=== PATIENT | male | born 1980 | race African-American/Black ===

== ENCOUNTER 2023-07-27 18:22 | Inpatient (IN) | payer OTHER ==
[~2023-07-27] VITALS: Ht 185.4 cm; Wt 77.1 kg
[2023-07-27] MEDS ORDERED: TDAP DIPH,PERTUSS,TET VAC/PF 0.5 ML DISP.SYRIN IM ONE ×2 (19:00→19:47)
[2023-07-27] MEDS ORDERED: MORPHINE SULFATE 4 MG/1 ML DISP.SYRIN IV ONE (19:00)
[2023-07-27] MEDS ORDERED: MORPHINE SULFATE 2 MG/1 ML DISP.SYRIN ONE (19:45)
[2023-07-27 21:05] LABS: BASOPHILS # (AUTO) 0.1 K/UL (0.0-0.2); BASOPHILS % (AUTO) 2.2 % (0.0-2.0); EOSINOPHILS % (AUTO) 0.5 % (0.0-7.0); HEMATOCRIT 36.1 % (36.7-47.1); HEMOGLOBIN 12.2 g/dL (12.5-16.3); LYMPHOCYTES # (AUTO) 1.4 K/uL (0.8-4.8); LYMPHOCYTES % (AUTO) 27.4 % (20.5-51.5); MEAN CORPUSCULAR HEMOGLOBIN 30.9 uug (23.8-33.4); MEAN CORPUSCULAR HGB CONC 34 g/dL (32.5-36.3); MEAN CORPUSCULAR VOLUME 91.9 fL (73.0-96.2); MONOCYTES # (AUTO) 0.4 K/uL (0.1-1.30); MONOCYTES % (AUTO) 8.4 % (0.0-11.0); NEUTROPHILS # (AUTO) 3.1 K/uL (1.8-8.9); NEUTROPHILS % (AUTO) 61.5 % (38.5-71.5); PLATELET COUNT (AUTO) 208 K/uL (152-348); RED BLOOD CELL COUNT(AUTO) 3.93 MIL/uL (4.06-5.63); RED CELL DISTRIBUTION WIDTH 14.2 % (12.1-16.2); WHITE BLOOD COUNT (AUTO) 5.1 K/uL (3.6-10.2)
[2023-07-27 21:12] LABS: DIFFERENTIAL COMMENT 1
[2023-07-27 21:15] LABS: CREATININE 0.9 mg/dL (0.6-1.3); POTASSIUM 3.6 mmol/L (3.5-5.1)
[2023-07-28] MEDS ORDERED: ONDANSETRON 4 MG/2 ML VIAL IV PRN (00:15)
[2023-07-28] MEDS ORDERED: ACETAMINOPHEN 650 MG SUPP.RECT RC PRN (00:15)
[2023-07-28 00:40] VITALS: BP 140/85; TEMP 98.5; O2SAT 96
[2023-07-28] MEDS ORDERED: PIPERACILLIN/TAZOBACTAM/D5W 50 ML IV ONE (00:42)
[2023-07-28] MEDS: MORPHINE SULFATE 4 MG/1 ML DISP.SYRIN IV PRN ×2 (00:57→08:12)
[2023-07-28] MEDS ORDERED: PIPERACILLIN SODIUM/TAZOBACTAM 3.375 G in IV DEXTROSE 5% 50 ML IV SCH (01:00)
[2023-07-28] MEDS: IV D5/ 0.9% NACL 1,000 ML IV PRN ×2 (01:16→21:43)
[2023-07-28] MEDS ORDERED: PIPERACILLIN SODIUM/TAZOBACTAM 3.375 G in IV DEXTROSE 5% 50 ML IV ONE (01:30)
[2023-07-28 01:32] LABS: *BILIRUBIN,URIN NEGATIVE (NEGATIVE); *BLOOD, URINE NEGATIVE (NEGATIVE); *CLARITY,URINE CLEAR (CLEAR); *COLOR,URINE YELLOW (YELLOW); *KETONES,URINE 2+ (NEGATIVE); *PROTEIN,URINE NEGATIVE (NEGATIVE); *UROBILINOGEN,URINE 0.2 E.U./dl (NORMAL); LEUKOCYTE ESTERASE ,URINE NEGATIVE (NEGATIVE); NITRITE, URINE NEGATIVE (NEGATIVE); PH,URINE 5.5 (5.0-8.0); UGLUCOSE NEGATIVE (NEGATIVE)
[2023-07-28 04:00] VITALS: BP 140/79; TEMP 98.5; O2SAT 98
[2023-07-28] MEDS: ACETAMINOPHEN 325 MG TABLET PO ONE ×2 (06:47→06:54)
[2023-07-28 07:28] LABS: ALBUMIN 3.8 g/dL (3.4-5.0); BILIRUBIN,TOTAL 0.6 mg/dL (0.2-1.0); CALCIUM 8.6 mg/dL (8.5-10.1); CREATININE 0.9 mg/dL (0.6-1.3); MAGNESIUM 1.9 mg/dL (1.8-2.4); PHOSPHOROUS 3.7 mg/dL (2.5-4.9); POTASSIUM 3.8 mmol/L (3.5-5.1); TOTAL PROTEIN, SERUM 7.1 g/dL (6.4-8.2)
[2023-07-28 07:48] LABS: BASOPHILS % (AUTO) 0.6 % (0.0-2.0); EOSINOPHILS % (AUTO) 0.3 % (0.0-7.0); HEMATOCRIT 36.4 % (36.7-47.1); HEMOGLOBIN 12.3 g/dL (12.5-16.3); LYMPHOCYTES # (AUTO) 1.1 K/uL (0.8-4.8); LYMPHOCYTES % (AUTO) 22.4 % (20.5-51.5); MEAN CORPUSCULAR HEMOGLOBIN 30.7 uug (23.8-33.4); MEAN CORPUSCULAR HGB CONC 34 g/dL (32.5-36.3); MEAN CORPUSCULAR VOLUME 91.3 fL (73.0-96.2); MONOCYTES # (AUTO) 0.5 K/uL (0.1-1.30); MONOCYTES % (AUTO) 10.4 % (0.0-11.0); NEUTROPHILS # (AUTO) 3.2 K/uL (1.8-8.9); NEUTROPHILS % (AUTO) 66.3 % (38.5-71.5); PLATELET COUNT (AUTO) 201 K/uL (152-348); RED BLOOD CELL COUNT(AUTO) 3.99 MIL/uL (4.06-5.63); RED CELL DISTRIBUTION WIDTH 14.2 % (12.1-16.2); WHITE BLOOD COUNT (AUTO) 4.9 K/uL (3.6-10.2)
[2023-07-28 07:59] LABS: DIFFERENTIAL COMMENT 1
[2023-07-28 08:00] VITALS: BP 146/81; TEMP 98.1; O2SAT 98
[2023-07-28] MEDS: PANTOPRAZOLE SODIUM 40 MG VIAL IV SCH (08:11)
[2023-07-28] MEDS: PIPERACILLIN SODIUM/TAZOBACTAM 3.375 G in IV DEXTROSE 5% 100 ML IV SCH ×2 (08:12→16:04)
[2023-07-28 14:57] VITALS: BP 148/85; TEMP 98.3; O2SAT 98
[2023-07-28] MEDS: HYDROCODONE/APAP 10-325 MG TABLET PO PRN (18:30)
[2023-07-28 19:39] VITALS: BP 130/84; TEMP 98.3; O2SAT 97
[2023-07-29] MEDS: PIPERACILLIN SODIUM/TAZOBACTAM 3.375 G in IV DEXTROSE 5% 100 ML IV SCH ×3 (00:09→17:23)
[2023-07-29 04:00] VITALS: BP 131/70; TEMP 98.8; O2SAT 97
[2023-07-29] MEDS: MORPHINE SULFATE 4 MG/1 ML DISP.SYRIN IV PRN (04:10)
[2023-07-29 08:04] VITALS: BP 145/78; TEMP 98.7; O2SAT 100
[2023-07-29] MEDS: PANTOPRAZOLE SODIUM 40 MG VIAL IV SCH (08:15)
[2023-07-29] MEDS: HYDROCODONE/APAP 10-325 MG TABLET PO PRN ×2 (11:51→18:53)
[2023-07-29 16:09] VITALS: BP 130/80; TEMP 98.8; O2SAT 99
[2023-07-29 19:53] VITALS: BP 120/76; TEMP 98.4; O2SAT 98
[2023-07-30] MEDS: MORPHINE SULFATE 4 MG/1 ML DISP.SYRIN IV PRN (00:32)
[2023-07-30] MEDS: PIPERACILLIN SODIUM/TAZOBACTAM 3.375 G in IV DEXTROSE 5% 100 ML IV SCH ×2 (00:43→08:02)
[2023-07-30 04:55] VITALS: BP 126/75; TEMP 98.1; O2SAT 98
[2023-07-30] MEDS: HYDROCODONE/APAP 10-325 MG TABLET PO PRN ×2 (06:03→12:55)
[2023-07-30] MEDS: PANTOPRAZOLE SODIUM 40 MG VIAL IV SCH (08:02)
[2023-07-30 11:32] VITALS: BP 116/78; TEMP 98.1; O2SAT 99
[2023-07-30] MEDS ORDERED: HYDR-3972 PO (13:09)
== END 2023-07-30 14:04 | disposition home or self-care (01) | DRG 534 ==
LOC: ER 18:24 → MEDSURG3 23:31 → UNDOADMIN 23:31 → MED 23:55 → EDLOC 23:55 → MEDSURG3 07-29 18:35
PROVIDERS: ADMIT Internal Medicine; ATTEND Nurse Practitioner Acute Care
PROC: 2W3NX1Z Immobilization of Right Upper Leg using Splint (ICD-10-PCS; principal; 2023-07-27)
PROC: 0S9C3ZZ Drainage of Right Knee Joint, Percutaneous Approach (ICD-10-PCS; 2023-07-28)
DX: S72.431A Displaced fracture of medial condyle of right femur, initial encounter for closed fracture (principal); D68.59 Other primary thrombophilia; M25.461 Effusion, right knee; V13.4XXA Pedal cycle driver injured in collision with car, pick-up truck or van in traffic accident, initial encounter; Y93.55 Activity, bike riding; Y92.410 Unspecified street and highway as the place of occurrence of the external cause; Z74.09 Other reduced mobility; D64.9 Anemia, unspecified; S70.311A Abrasion, right thigh, initial encounter; S60.511A Abrasion of right hand, initial encounter; S80.212A Abrasion, left knee, initial encounter
CPT/HCPCS: 36415; 71045; 72170; 73551; 73721; 83735; 84100; 85025; 85730; 86850; 86900; 86901; 90715; 93005; A4663; C9113; G0378; J2270; J2543; J7042